=== PATIENT | female | born 1995 | race Hispanic/Latino ===

== ENCOUNTER 2020-07-20 15:50 | Observation (INO) | payer MEDICAID ==
[~2020-07-20] VITALS: Ht 175.3 cm; Wt 115.2 kg
[2020-07-20 17:12] VITALS: BP 113/56
== END 2020-07-20 17:22 | disposition home or self-care (01) ==
LOC: EDH 15:50 → LDH 16:03
PROVIDERS: ADMIT Obstetrics & Gynecology; ATTEND Obstetrics & Gynecology
DX: O26.892 Other specified pregnancy related conditions, second trimester (principal); R42 Dizziness and giddiness; Z90.49 Acquired absence of other specified parts of digestive tract; Z3A.24 24 weeks gestation of pregnancy
CPT/HCPCS: 99284; G0378

== ENCOUNTER 2023-10-17 03:28 | Emergency (ER) | payer MEDICAID ==
[~2023-10-17] VITALS: Ht 172.7 cm; Wt 128.4 kg
[~2023-10-17 03:28] MED LIST: PNV1TABL17 PO
[2023-10-17 03:59] LABS: RAPID GROUP A STREP negative (NEGATIVE)
[2023-10-17 04:02] LABS: SARS-CoV-2, RNA, NAAT NEGATIVE SARS CoV-2 (NEGATIVE)
[2023-10-17 04:08] LABS: INFLUENZA TYPE A Negative For Type A (NEGATIVE); INFLUENZA TYPE B Negative For Type B (NEGATIVE)
[2023-10-17 04:49] VITALS: PULSE 60; RESP 18
[2023-10-17] MEDS ORDERED: ALBUHFA IH (05:00)
[2023-10-17] MEDS ORDERED: SOLU-MEDROL 125MG VIAL IM ONE (05:00)
[2023-10-17] MEDS ORDERED: BENZ-39 PO (05:00)
[2023-10-17] MEDS ORDERED: AUD IH (05:00)
[2023-10-17] MEDS ORDERED: ALBUTEROL 0.083% 2.5 MG/3 ML INH IH ONE (05:00)
[2023-10-17 05:05] VITALS: BP 136/60; PULSE 74; RESP 18; O2SAT 97
== END 2023-10-17 05:15 | disposition home or self-care (01) ==
LOC: EDH 03:28
DX: R05.9 Cough, unspecified (principal); R45.1 Restlessness and agitation; Z20.822 Contact with and (suspected) exposure to COVID-19
CPT/HCPCS: 99283; 96374; 87635; 87880; 87804 ×2; 94640; C9803; J2930